=== PATIENT | female | born 1990 ===

== ENCOUNTER → 2019-03-13 | Outpatient (CLI) | payer OTHER | END | disposition home or self-care (01) | LOC: LAB 12:35 → LAB SHORT 12:35 | PROVIDERS: Obstetrics & Gynecology | DX: Z34.80 Encounter for supervision of other normal pregnancy, unspecified trimester (principal) | CPT/HCPCS: G0123 ==

== ENCOUNTER → 2019-07-20 | Outpatient (CLI) | payer OTHER ==
[~2019-07-20] MED LIST: DOCU100 PO; IBUP800 PO; OMEPRAZOLE20 MG PO; PRENATAL TABLE1 EAC2 PO; Percocet 5-3251 EACH PO
== END | disposition home or self-care (01) ==
LOC: LAB SHORT 11:00 → LAB 11:00
DX: Z34.93 Encounter for supervision of normal pregnancy, unspecified, third trimester (principal)
CPT/HCPCS: 87081; 87653

== ENCOUNTER 2019-08-09 15:16 | Inpatient (IN) | payer OTHER ==
[~2019-08-09] VITALS: Ht 162.6 cm; Wt 113.4 kg
[2019-08-09 15:47] LABS: BASOPHILS ABSOLUTE AUTO 0.03 K/mm3 (0.00-0.23); BASOPHILS PERCENT AUTO 0 % (0-2); EOSINOPHILS ABSOLUTE AUTO 0.08 K/mm3 (0.00-0.68); EOSINOPHILS PERCENT AUTO 1 % (0-6); Hematocrit 33.2 % (33.0-51.0); Hemoglobin 10.7 g/dL (11.5-16.0); IMMATURE GRAN ABSOLUTE AUTO 0.16 K/mm3 (0.00-0.10); IMMATURE GRAN PERCENT AUTO 1 % (0-1); LYMPHOCYTES ABSOLUTE AUTO 1.38 K/mm3 (0.84-5.20); LYMPHOCYTES PERCENT AUTO 10 % (21-46); MONOCYTES ABSOLUTE AUTO 0.51 K/mm3 (0.16-1.47); MONOCYTES PERCENT AUTO 4 % (4-13); Mean Corpuscular HGB Conc 32.2 g/dL (31.5-36.5); Mean Corpuscular Volume 93 fL (80-100); Mean Platelet Volume 10.6 fL (9.1-12.4); NEUTROPHILS ABSOLUTE AUTO 11.76 K/mm3 (1.96-9.15); NEUTROPHILS PERCENT AUTO 85 % (41-73); Platelet Count 244 K/mm3 (150-400); RDW Coefficient Variation 14.5 % (11.7-14.2); RDW Standard Deviation 49.1 fL (35.1-46.3); Red Blood Cell Count 3.57 M/mm3 (3.80-5.20); White Blood Cell Count 13.92 K/mm3 (4.00-11.30)
[2019-08-09 16:03] LABS: Anion Gap 6 mmol/L (6-16); Blood Urea Nitrogen 11 mg/dL (8-24); Bun/Creatinine Ratio 21.3 (12.0-20.0); CO2, Blood 21 mmol/L (21-32); Calcium, Blood 9.1 mg/dL (8.5-10.1); Chloride, Blood 110 mmol/L (98-108); Creatinine, Blood 0.52 mg/dL (0.40-1.00); Glomerular Filtration Rate >60 (60-); Glucose, Blood 82 mg/dL (70-99); Potassium, Blood 3.9 mmol/L (3.5-5.5); Sodium, Blood 137 mmol/L (136-145)
[2019-08-09] MEDS ORDERED: PRENATAL TABLE1 EAC2 PO (16:32)
[2019-08-09] MEDS ORDERED: DOCU100 PO (16:32)
[2019-08-09] MEDS ORDERED: OMEPRAZOLE20 MG PO (16:33)
[2019-08-09 17:49] LABS: PCO2 Cord - Arterial 67.4 mmHg (40-50); PO2 Cord - Arterial 16.9 mmHg (16-20); pH Cord - Arterial 7.15 (7.28-7.35)
[2019-08-09 17:53] LABS: PCO2 Cord - Venous 55.6 mmHg (40-50); PO2 Cord - Venous 19.6 mmHg (28-32); pH Umbilical Cord - Venous 7.26 (7.26-7.35)
[2019-08-10 05:12] LABS: Hematocrit 27.2 % (33.0-51.0); Mean Corpuscular HGB 30.6 pg (26.0-34.0); Mean Corpuscular HGB Conc 33.1 g/dL (31.5-36.5); Mean Corpuscular Volume 93 fL (80-100); Mean Platelet Volume 10.9 fL (9.1-12.4); Platelet Count 211 K/mm3 (150-400); RDW Coefficient Variation 14.6 % (11.7-14.2); RDW Standard Deviation 48.7 fL (35.1-46.3); Red Blood Cell Count 2.94 M/mm3 (3.80-5.20); White Blood Cell Count 14.29 K/mm3 (4.00-11.30)
--- NOTE | 2019-08-10 13:40 | NUR ---
PT UP TO SHOWER. NEW ABD BINDER ON. BED LINNEN CHANGED.
--- NOTE | 2019-08-10 14:00 | NUR ---
REPORT OFF TO BONG KAHN
--- NOTE | 2019-08-10 18:37 | NUR ---
PATIENT SLEEPING STATES SHE REFUSES BEDSIDE REPORT AT THIS TIME SHE WANTS TO SLEEP
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
--- NOTE | 2019-08-11 07:33 | NUR ---
DR SCHULTZ IN ROOM DISCUSSING HAVING A PT COME BY TO HELP PATIENT. PATIENT HESITANT, BUT DID AGREE.,
--- NOTE | 2019-08-11 07:49 | NUR ---
REPLACED COBAN OVER LEFT HAND/WRIST, DRESSING C/D/I
--- NOTE | 2019-08-11 14:39 | NUR ---
Assumed care from Elma Christensen RN. Pt resting with sleeping nb in arms. Pt would like to nap so nb swaddled and placed in open crib. Offered to take nb to desk but pt declined at this time. Denies other needs.
[2019-08-12] MEDS ORDERED: Percocet 5-3251 EACH PO (12:48)
[2019-08-12] MEDS ORDERED: IBUP800 PO (13:48)
--- NOTE | 2019-08-12 14:51 | NUR ---
PATIENT DISCHARGED TO HOME WITH BABY IN CARSEAT AT 1445. WALKED TO CAR BY RN
--- NOTE | 2019-08-12 14:57 | NUR ---
BP TAKEN FROM [id number] WITH RADIAL CUFF GAVE HIGH BP READING. DISCUSSED RESULTS WITH PLATE MAKER ZINC, ADVISED TO USE XTRA LARGE CUFF ON UPPER ARM, OBTAINDED READINGS MORE CONSISTANT WITH PATIENT'S AVERAGE BP READING.
== END 2019-08-12 14:44 | disposition home or self-care (01) | DRG 788 ==
LOC: ER 15:16 → BC 16:05
PROVIDERS: Emergency Medicine; ADMIT Obstetrics & Gynecology
PROC: 0XQMXZZ Repair Left Thumb, External Approach (ICD-10-PCS; 2019-08-09)
PROC: 10D00Z1 Extraction of Products of Conception, Low, Open Approach (ICD-10-PCS; principal; 2019-08-09 18:30)
DX: O9A.213 Injury, poisoning and certain other consequences of external causes complicating pregnancy, third trimester (principal); O16.4 Unspecified maternal hypertension, complicating childbirth; O34.211 Maternal care for low transverse scar from previous cesarean delivery; O45.93 Premature separation of placenta, unspecified, third trimester; Z3A.38 38 weeks gestation of pregnancy; Z37.0 Single live birth; R40.2410 Glasgow coma scale score 13-15, unspecified time; V49.9XXA Car occupant (driver) (passenger) injured in unspecified traffic accident, initial encounter; S61.012A Laceration without foreign body of left thumb without damage to nail, initial encounter; O99.214 Obesity complicating childbirth; E66.01 Morbid (severe) obesity due to excess calories
CPT/HCPCS: 12002; 36415; 80048; 82803; 85025; 85027; 86850; 86900; 86901; 90471; 90707; 90714; 97161; 97530; 99285; J0690; J1650; J1885; J2590; J2765; J3010; J7030; J7120